=== PATIENT | female | born 1995 | race Caucasian/White ===

== ENCOUNTER → 2018-08-12 | Outpatient (CLI) | payer OTHER | LOC: M RAD 13:10 | DX: O20.0 Threatened abortion (principal); O30.002 Twin pregnancy, unspecified number of placenta and unspecified number of amniotic sacs, second trimester; Z3A.17 17 weeks gestation of pregnancy | CPT/HCPCS: 76817 ==

== ENCOUNTER → 2019-06-09 | Outpatient (REF) | payer OTHER | LOC: M LAB REF 19:23 | PROVIDERS: ATTEND Advanced Practice Midwife | DX: Z12.4 Encounter for screening for malignant neoplasm of cervix (principal) ==